=== PATIENT | female | born 1945 | race Caucasian/White ===

== ENCOUNTER 2019-06-03 11:13 | Outpatient (CLI) | payer MEDICARE, MEDICAID, SELFPAY ==
--- NOTE | 2019-06-03 11:16 | DI.RAD.S_ITS ---
PROCEDURE: PAIN L/SI FACET INJ/BLK 1STL INDICATIONS: SPONDYLOSIS FINDINGS: Fluoroscopic spot filming was performed to verify placement of spinal needles at the L5-L5 and L5-S1 level(s), as labeled on the films. Appropriate location(s) of the needle tip(s) was confirmed by injection of iodinated contrast. IMPRESSION: Fluoroscopy for pain management. Dictated by: Esme Muro M.D. on 06/03/2019 at 12:49 Approved by: Esme Muro M.D. on 06/03/2019 at 12:52
[2019-06-03 11:42] VITALS: BP 115/67; PULSE 82; RESP 18; TEMP 36.6; O2SAT 97
[2019-06-03 12:20] VITALS: BP 127/65; PULSE 81; RESP 16; O2SAT 95
--- NOTE | 2019-06-03 12:21 | PC.NURSE ---
NO SEDATION MEDS GIVEN FOR PROCEDURE. UNABLE TO ESTABLISH IV ACCESS AFTER 2 NURSES TRIED (4 ATTEMPTS TOTAL). DR LORRIE HANCOCK TO CONTINUE WITH PROCEDURE WITHOUT IV ACCESS.
[2019-06-03 12:26] VITALS: BP 137/60; PULSE 80; RESP 16; O2SAT 94
[2019-06-03] MEDS: IOPAMIDOL 15 ML VIAL 3 ML INJ (12:29)
[2019-06-03] MEDS: BETAMETHASONE 30 MG/5 ML MDV 12 MG INJ (12:30)
[2019-06-03] MEDS: BUPIVACAINE 0.5% (PF) VIAL 2 ML INJ (12:30)
--- NOTE | 2019-06-03 12:31 | PC.NURSE ---
ASSISTING PT OFF TABLE AND TRANPORTING TO POST PROC AREA IN STABLE CONDITION. PT WAS NOT SEDATED FOR PROCEDURE.
--- NOTE | 2019-06-03 12:37 | P.PCN_ITS ---
Procedures Date/Time Date of procedure: 06/03/19 Time of procedure: 12:37 General Procedure description: PREOP DIAGNOSIS 1. FACET ARTHROPATHY, 2. AXIAL LBP, 3. MULTILEVEL DDD, POST OP DIAGNOSIS 1. FACET ARTHROPATHY, 2. AXIAL LBP, 3. MULTILEVEL DDD, PROCEDURES 1. FLUORSCOPICALLY GUIDED CONTRAST CONTROLLED FACET JOINT INJECTIONS RIGHT L4/5, L5/S1 SURGEON: DO AMBERLY Calderon is referred by Dr. Howe for treatment of Axial LBP FINDINGS Multilevel Facet Arthropathy with Clinically significant axial LBP DESCRIPTION OF PROCEDURE Fluoroscopically guided, contrast-controlled right L4/5, L5/S1 facet joint injections. Following review of allergy and review of potential side effects and complications, including, but not necessarily limited to, infection, allergic reaction, local tissue breakdown, stroke, temporary or permanent nerve injury, paralysis, and possible , the patient indicated that the patient understood and agreed to proceed. An informed consent document was signed by the patient, witnessed by a nurse, and placed in the patient's chart. Additionally, other treatment options including medications, modalities, and physical therapy were reviewed with the patient. After review of previous anaesthesic history and IV conscious sedation the patient was deemed safe to proceed with todays procedure with IV conscious sedation as ASA class II designation. Safety time-out was performed to confirm patient ID, procedure to be performed and site of procedure. IV sedation was deemed unnecessary and thus not administered during the course of the procedure while the patient remained responsive to all verbal commands. In the prone position, following sterile prep and drape of the lumbar region, the posterior aspect of the right L4/5, L5/S1 facet joints were identified fluoroscopically. The skin was anesthetized via a 25-gauge 1.5-inch needle with 1% lidocaine solution into the corresponding facet joints. At this point, a 22- gauge 3.5-inch spinal needle was atraumatically introduced and advanced under fluoroscopic guidance into the corresponding facet joints. Following negative aspiration, injections of approximately 0.2-cc of Isovue 200 confirmed interarticular placement without vascular uptake. Radiological data, including multiple fluoroscopic views of the lumbosacral spine, reveal a spinal needle at the right L4/5, L5/S1 facet joints. Subsequent views show flow of contrast material both superiorly and inferiorly within the joint space without vascular or intrathecal uptake. At this point, a total of 0.5 cc including a mixture of 0.25cc Marcaine and 0.25cc betamethasone was injected without complication into each of the corresponding facet joints. The procedure tolerated the procedure well without signs or symptoms of comp lications prior to transfer to the recovery area continued monitoring without incident. The patient was then transferred to the recovery area where they were observed for an appropriate period of time after the injection. The patient reported a VAS score of 7 prior to the procedure and a post-procedure VAS of 0. Total Fluoroscopy Time: 12.7 seconds Total Conscious Sedation Time: 24min POST OP INSTRUCTIONS The patient was provided a Pain Log to continue to record their response to the target-specific procedure prior to follow-up visit with their referring physician. Additionally, specific post-injection care instructions and a contact number to our office were provided if concerns arise regarding possible complications associated with the procedure are suspected. Carlos Davies DO Complications: none
[2019-06-03 12:43] VITALS: BP 136/54; PULSE 78; RESP 16; O2SAT 97
--- NOTE | 2019-06-03 12:44 | PC.NURSE ---
NO SEDATION MEDS GIVEN DURING PROCEDURE. PT A&OX4, VSS, AT BASELINE FOR AMBULATION.
== END 2019-06-03 12:47 | disposition home or self-care (01) ==
PROVIDERS: PCP Family Medicine; Visit Provider Physical Medicine & Rehabilitation
DX: M47.817 Spondylosis without myelopathy or radiculopathy, lumbosacral region (principal); M47.816 Spondylosis without myelopathy or radiculopathy, lumbar region; M54.5 Low back pain; M51.36 Other intervertebral disc degeneration, lumbar region; M51.37 Other intervertebral disc degeneration, lumbosacral region
CPT/HCPCS: 64493; 64494; J0702; J2250

== ENCOUNTER → 2019-06-17 14:39 | Outpatient (CLI) | payer MEDICARE, MEDICAID, SELFPAY ==
--- NOTE | 2019-06-17 14:41 | DI.US.S_ITS ---
PROCEDURE: US PERIPH VENOUS LOW EXTREM RT INDICATIONS: rule out DVT, hx of PE TECHNIQUE: Real-time imaging, as well as color and pulse Doppler interrogation, were performed of the lower extremity deep veins from the inguinal ligament to the popliteal fossa. COMPARISON: None. FINDINGS: Occlusive thrombus is identified in within the right popliteal vein that does not extend into the superficial femoral vein. The superficial femoral vein, profunda femoral vein, and common femoral vein are patent and free of intraluminal thrombus. Subcutaneous edema is present. No drainable or loculated fluid collections. IMPRESSION: Small occlusive deep vein thrombosis of the popliteal vein without extension into the femoral veins. Note: Concordant findings were discussed with Emily Gonzales at 1514 hours (PST) on 06/17/19. Dictated by: Karan Vasquez M.D. on 06/17/2019 at 14:20 Approved by: Karan Vasquez M.D. on 06/17/2019 at 14:22
== END ==
PROVIDERS: PCP Family Medicine; Visit Provider Registered Nurse
DX: I82.431 Acute embolism and thrombosis of right popliteal vein (principal); M79.89 Other specified soft tissue disorders; Z86.718 Personal history of other venous thrombosis and embolism
CPT/HCPCS: 93971; 99214